=== PATIENT | male | born 1955 | race Caucasian/White ===

== ENCOUNTER 2019-04-28 08:48 | Outpatient (CLI) | payer MEDICARE, MEDICAID | END 2019-04-28 23:59 | disposition home or self-care (01) | LOC: US 08:48 | PROVIDERS: ATTEND Internal Medicine Interventional Cardiology | DX: Z13.6 Encounter for screening for cardiovascular disorders (principal); I65.22 Occlusion and stenosis of left carotid artery; R55 Syncope and collapse | CPT/HCPCS: 76770-TC; 93880-TC ==

== ENCOUNTER 2019-06-09 10:55 | Outpatient (CLI) | payer MEDICAID, MEDICARE | END 2019-06-09 23:59 | disposition home or self-care (01) | LOC: CARD 10:55 | PROVIDERS: ATTEND Internal Medicine Interventional Cardiology | DX: I73.9 Peripheral vascular disease, unspecified (principal) ==